=== PATIENT | male | born 1935 | race African-American/Black ===

== ENCOUNTER 2017-06-25 15:39 | Inpatient (IN) | payer MEDICARE, BC ==
[~2017-06-25] VITALS: Ht 172.7 cm; Wt 54.4 kg
[2017-06-25 15:45] VITALS: BP 109/76
--- NOTE | 2017-06-25 16:29 | Diagnostic Imaging Report ---
Indication: Dyspnea Comparison: None A single view chest radiograph was obtained. Findings: The heart is enlarged. There is abnormal basilar densities that appear old the finding. Findings could be due to pneumonia or atelectasis. Lung volumes are low so there is likely some atelectasis present. The bones are unremarkable. Impression: Basilar atelectasis. Pneumonia could be present. Please correlate clinically.
[2017-06-25 16:54] LABS: MEAN CORPUSCULAR HEMOGLOBIN 33.7 PG (27.0-31.0); MEAN CORPUSCULAR HGB CONC 30.1 G/DL (32.0-36.0); MEAN CORPUSCULAR VOLUME 112 FL (80-99); MEAN PLATELET VOLUME 9.4 FL (6.5-10.1); PLATELET COUNT 104 K/UL (150-450); RED BLOOD COUNT 3.87 M/UL (4.70-6.10); RED CELL DISTRIBUTION WIDTH 14.7 % (11.6-14.8); WHITE BLOOD COUNT 9.3 K/UL (4.8-10.8)
[2017-06-25 17:08] LABS: TROPONIN I < 0.30 ng/mL (<=0.30)
[2017-06-25] MEDS ORDERED: TRAVATAN Z5 ML OP (17:09)
[2017-06-25] MEDS ORDERED: PREDNISOLONE 13.5 M1 OP (17:09)
[2017-06-25] MEDS ORDERED: VITAMIN B-1100 MG ORAL (17:09)
[2017-06-25] MEDS ORDERED: DOCUSATE SODIU100 MG ORAL (17:09)
[2017-06-25] MEDS ORDERED: ZYMAXID2.5 ML LEFT EYE (17:09)
[2017-06-25] MEDS ORDERED: TAMSULOSIN HCL0.4 MG ORAL (17:09)
[2017-06-25] MEDS ORDERED: PANTOPRAZOLE SO40 MG ORAL (17:09)
[2017-06-25 17:19] LABS: ALANINE AMINOTRANSFERASE 25 U/L (3-41); ALBUMIN/GLOBULIN RATIO 1.1 (1.0-2.7); ANION GAP 14 (5-15); ASPARTATE AMINO TRANSFERASE 32 U/L (5-40); CALCIUM 8.9 mg/dL (8.6-10.2); CARBON DIOXIDE 22 mEQ/L (20-30); CHLORIDE 103 mEQ/L (98-107); CREATININE 2.1 mg/dL (0.7-1.2); HEMOLYSIS 7; SODIUM 139 mEQ/L (135-145); TOTAL PROTEIN 6.6 g/dL (6.6-8.7)
[2017-06-25 17:21] LABS: POTASSIUM 6.1 mEQ/L (3.4-4.9)
[2017-06-25] MEDS ORDERED: Sodium Polystyrene Sulfonate 15gm Powder ORAL ONE ×2 (17:30→19:20)
[2017-06-25] MEDS ORDERED: Calcium Gluconate 1gm/10ml vial IVP ONE ×2 (17:30→19:15)
[2017-06-25] MEDS ORDERED: Albuterol ud Inhalation HHN ONE (17:30)
--- NOTE | 2017-06-25 17:30 | Emergency Room Report ---
History of Present Illness General Chief Complaint: Upper Respiratory Illness Source: Patient, EMS Present Illness HPI 82YOM BIBEMS with with SOB Was tachypnic on scene per EMS 12 lead shows bradycardia 45. No ischemia No history of bradycardia, block. STOPPED beta-mary anne months ago Takes Bumex and K supplements. Took 2x supplements today Denies chest pain, nausea/vomiting, abd pain, sob Feels better now in ED Allergies: Coded Allergies: PENICILLINS (Verified Allergy, Unknown, 06/25/17) SULFA (SULFONAMIDE ANTIBIOTICS) (Verified Allergy, Unknown, 06/25/17) Patient History Past Medical History: HTN, CHF, renal disease Past Surgical History: none Pertinent Family History: none Social History: Denies: smoking, alcohol use, drug use Immunizations: UTD Reviewed Nursing Documentation: PMH: Agreed, PSxH: Agreed Nursing Documentation-PMH Past Medical History: No History, Except For Hx Cardiac Problems: Yes - CHF Hx Hypertension: Yes Hx Gastrointestinal Problems: Yes - BPH Review of Systems All Other Systems: negative except mentioned in HPI Physical Exam Vital Signs Date Time Temp Pulse Resp B/P (MAP) Pulse Ox O2 Delivery O2 Flow Rate FiO2 06/25/17 15:33 97.2 46 20 109/76 99 Room Air Sp02 EP Interpretation: reviewed, normal General Appearance: normal inspection, well appearing, no apparent distress, alert, GCS 15, non-toxic Head: normocephalic, atraumatic Eyes: bilateral eye PERRL, bilateral eye EOMI ENT: normal ENT inspection, hearing grossly normal, normal voice Neck: normal inspection, full range of motion, supple, no bony tend Respiratory: normal inspection, lungs clear, normal breath sounds, no respiratory distress, no retraction, no wheezing Cardiovascular #1: regular rate, rhythm, no edema Gastrointestinal: normal inspection, normal bowel sounds, non tender, soft, no guarding, no hernia Genitourinary: no CVA tenderness Musculoskeletal: normal inspection, back normal, normal range of motion, Andrew' s Sign negative Neurologic: normal inspection, alert, oriented x3, responsive, 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 I attest that this information is true, accurate and complete to the best of my knowledge. I understand that any falsification, omission, or concealment of material fact may subject me to administrative, civil, or criminal liability. This patient warrants hospital admission for extreme of age and has a condition that cannot be treated as outpatient. Diagnostic Impression: Primary Impression: SOB (shortness of breath) Additional Impressions: Bradycardia First degree atrioventricular block by electrocardiogram Acute hyperkalemia ER Course Bradycardia to 45 Subjective SOB Bradycardia, 1st degre AV block on ECG - appears new onset HyperK - probably from overdose accidntal of K packets - likely cause of bradycardia symptomatic Tx with Calcium, albuterol insulin/dextrose, kayexelate in ED elevated serumCr, likely his known CKD BNP 900 - but o2 sat 100% on RA CXR No pna or CHF Tele admit 6pm Dr. Flores EKG Diagnostic Results Rate: bradycardiac, other - 1st degree block ST Segments: no acute changes ASA given to the pt in ED: No Rhythm Strip Diag. Results EP Interpretation: yes Rate: 45 Rhythm: NSR, no PVC's, no ectopy Chest X-Ray Diagnostic Results Chest X-Ray Diagnostic Results : Chest X-Ray Ordered: Yes # of Views/Limited/Complete: 1 View Indication: Shortness of Breath EP Interpretation: Yes Interpretation: no consolidation, no effusion, no pneumothorax, no acute cardiopulmonary disease Impression: No acute disease Electronically Signed by: Dr Alondra Bennett MD Last Vital Signs Date Time Temp Pulse Resp B/P (MAP) Pulse Ox O2 Delivery O2 Flow Rate FiO2 06/25/17 15:45 46 20 Room Air 06/25/17 15:45 109/76 99 06/25/17 15:33 97.2 Status: improved Disposition: ADMITTED INPATIENT Condition: Serious ALONDRA BENNETT M.D. Jun 25, 2017 17:30
[2017-06-25 17:31] LABS: CKMB 2.1 ng/mL (< 6.7)
[2017-06-25 17:40] LABS: BILIRUBIN,DIRECT 0.6 mg/dL (0.1-0.3)
[2017-06-25 17:43] LABS: LYMPHOCYTES % (MANUAL) 22 % (20-45); NEUTROPHILS % (MANUAL) 66 % (45-75); TOTAL CELLS COUNTED 100
[2017-06-25 17:44] LABS: ANISOCYTOSIS 1+; BAND NEUTROPHILS % (MANUAL) 0 % (0-8); BASOPHILS % (MANUAL) 0 % (0-2); EOSINOPHILS % (MANUAL) 0 % (0-3); MACROCYTES 2+; PLATELET ESTIMATE DECREASED; PLATELET MORPHOLOGY NORMAL
[2017-06-25 17:50] VITALS: BP 103/71
[2017-06-25 18:17] VITALS: BP 129/77
[2017-06-25 19:08] VITALS: BP 116/70
[2017-06-25] MEDS ORDERED: Morphine Sulfate 2mg/ml Inj IVP PRN (19:15)
[2017-06-25] MEDS ORDERED: Albuterol/Ipratropium 3ml neb HHN PRN (19:15)
[2017-06-25] MEDS ORDERED: Mylanta II UD 30ml ORAL PRN (19:15)
[2017-06-25] MEDS ORDERED: Zolpidem 5mg tab ORAL PRN (19:15)
[2017-06-25] MEDS ORDERED: Miralax 17gm pkt ORAL PRN (19:15)
[2017-06-25 21:00] VITALS: BP 152/72
[2017-06-25] MEDS ORDERED: Tamsulosin 0.4mg cap ORAL SCH (21:00)
[2017-06-25] MEDS: Heparin 5000 units/ml inj SUBQ SCH (22:34)
[2017-06-26] VITALS: BP 114/74
[2017-06-26 04:00] VITALS: BP 98/57
[2017-06-26 08:00] VITALS: BP 113/73
[2017-06-26 08:13] LABS: EOSINOPHILS % (AUTO) 1.1 % (0.0-3.0); LYMPHOCYTES % (AUTO) 13.2 % (20.0-45.0); MEAN CORPUSCULAR HEMOGLOBIN 35.7 PG (27.0-31.0); MEAN CORPUSCULAR HGB CONC 32.7 G/DL (32.0-36.0); MEAN CORPUSCULAR VOLUME 109 FL (80-99); MEAN PLATELET VOLUME 10.7 FL (6.5-10.1); MONOCYTES % (AUTO) 10.6 % (1.0-10.0); NEUTROPHILS % (AUTO) 74.1 % (45.0-75.0); PLATELET COUNT 109 K/UL (150-450); RED BLOOD COUNT 3.76 M/UL (4.70-6.10); RED CELL DISTRIBUTION WIDTH 14.2 % (11.6-14.8)
[2017-06-26 08:55] LABS: ALANINE AMINOTRANSFERASE 24 U/L (3-41); ALBUMIN/GLOBULIN RATIO 1.1 (1.0-2.7); ANION GAP 15 (5-15); ASPARTATE AMINO TRANSFERASE 31 U/L (5-40); CALCIUM 9.4 mg/dL (8.6-10.2); CARBON DIOXIDE 22 mEQ/L (20-30); CHLORIDE 105 mEQ/L (98-107); CREATININE 2.2 mg/dL (0.7-1.2); HEMOLYSIS 42; POTASSIUM 5.5 mEQ/L (3.4-4.9); SODIUM 142 mEQ/L (135-145); TOTAL PROTEIN 6.4 g/dL (6.6-8.7)
[2017-06-26] MEDS: Heparin 5000 units/ml inj SUBQ SCH (09:00)
--- NOTE | 2017-06-26 10:22 | History and Physical ---
History of Present Illness General Date patient seen: Jun 25, 2017 Reason for Hospitalization: Upper Respiratory Illness Present Illness HPI 82 year old male with hx of chronic renal disease on Bumex and Kcl was brought in by paramedics with CC of tachypnia on scene per EMS 12 lead shows bradycardia 45. Denies chest pain, nausea/vomiting, abd pain, sob. He was diagnosed to have hyerkalemia and worsening of her underlying renal insufficiency. He is admitted to telemetry for further evaluation. Allergies: Coded Allergies: PENICILLINS (Verified Allergy, Unknown, 06/25/17) SULFA (SULFONAMIDE ANTIBIOTICS) (Verified Allergy, Unknown, 06/25/17) Medication History Scheduled Docusate Sodium* (Docusate Sodium*), 100 MG ORAL TWICE A DAY, (Reported) Pantoprazole* (Pantoprazole*), 40 MG ORAL DAILY, (Reported) Tamsulosin Hcl (Tamsulosin Hcl*), 0.4 MG ORAL BEDTIME, (Reported) Thiamine Hcl* (Vitamin B-1*), 100 MG ORAL DAILY, (Reported) Miscellaneous Medications Gatifloxacin (Zymaxid), 2.5 ML LEFT EYE, (Reported) Gatifloxacin/Prednisolone (Prednisolone 1%-Gatiflox 0.5%), 3.5 ML OP, (Reported) Travoprost (Travatan Z), 5 ML OP, (Reported) Patient History Healthcare decision maker Resuscitation status Full Code Advanced Directive on File No Review of Systems Constitutional: Reports: malaise, weakness All Other Systems: negative except mentioned in HPI Physical Exam General Appearance: cachetic Lines, tubes and drains: peripheral HEENT: normocephalic, atraumatic Neck: non-tender, normal alignment Respiratory/Chest: chest wall non-tender, lungs clear Breasts: no masses Cardiovascular/Chest: normal peripheral pulses Abdomen: normal bowel sounds, soft Genitourinary/Rectal: normal genital exam Extremities: normal range of motion Skin Exam: normal pigmentation 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 Last 24 Hour Vital Signs Date Time Temp Pulse Resp B/P (MAP) Pulse Ox O2 Delivery O2 Flow Rate FiO2 06/26/17 08:00 96.8 55 19 113/73 99 Room Air 06/26/17 04:00 96.1 54 20 98/57 97 Room Air 06/26/17 04:00 51 06/26/17 00:00 59 10/3/17 00:00 97.7 53 20 114/74 98 Room Air 06/25/17 21:00 97.7 53 16 152/72 100 Room Air 21 06/25/17 19:14 97.2 52 16 116/70 100 Room Air 21 06/25/17 19:08 52 16 116/70 100 Room Air 06/25/17 18:17 51 16 129/77 100 Room Air 06/25/17 17:59 52 16 100 Room Air 21 06/25/17 17:50 48 18 103/71 100 Room Air 06/25/17 17:40 46 18 100 Room Air 21 06/25/17 17:39 46 18 Room Air 21 06/25/17 15:45 46 20 Room Air 06/25/17 15:45 20 109/76 99 Room Air 06/25/17 15:33 97.2 46 20 109/76 99 Room Air Laboratory Tests Test 06/25/17 16:10 06/26/17 07:35 White Blood Count 9.3 K/UL (4.8-10.8) 7.0 K/UL (4.8-10.8) Red Blood Count 3.87 M/UL (4.70-6.10) L 3.76 M/UL (4.70-6.10) L Hemoglobin 13.0 G/DL (14.2-18.0) L 13.4 G/DL (14.2-18.0) L Hematocrit 43.3 % (42.0-52.0) 41.0 % (42.0-52.0) L Mean Corpuscular Volume 112 FL (80-99) H 109 FL (80-99) H Mean Corpuscular Hemoglobin 33.7 PG (27.0-31.0) H 35.7 PG (27.0-31.0) H Mean Corpuscular Hemoglobin Concent 30.1 G/DL (32.0-36.0) L 32.7 G/DL (32.0-36.0) Red Cell Distribution Width 14.7 % (11.6-14.8) 14.2 % (11.6-14.8) Platelet Count 104 K/UL (150-450) L 109 K/UL (150-450) L Mean Platelet Volume 9.4 FL (6.5-10.1) 10.7 FL (6.5-10.1) H Neutrophils (%) (Auto) % (45.0-75.0) 74.1 % (45.0-75.0) Lymphocytes (%) (Auto) % (20.0-45.0) 13.2 % (20.0-45.0) L Monocytes (%) (Auto) % (1.0-10.0) 10.6 % (1.0-10.0) H Eosinophils (%) (Auto) % (0.0-3.0) 1.1 % (0.0-3.0) Basophils (%) (Auto) % (0.0-2.0) 1.0 % (0.0-2.0) Differential Total Cells Counted 100 Neutrophils % (Manual) 66 % (45-75) Lymphocytes % (Manual) 22 % (20-45) Monocytes % (Manual) 12 % (1-10) H Eosinophils % (Manual) 0 % (0-3) Basophils % (Manual) 0 % (0-2) Band Neutrophils 0 % (0-8) Platelet Estimate Decreased L Platelet Morphology Normal Anisocytosis 1+ Macrocytosis 2+ Sodium Level 139 mEQ/L (135-145) 142 mEQ/L (135-145) Potassium Level 6.1 mEQ/L (3.4-4.9) *H 5.5 mEQ/L (3.4-4.9) H Chloride Level 103 mEQ/L (98-107) 105 mEQ/L (98-107) Carbon Dioxide Level 22 mEQ/L (20-30) 22 mEQ/L (20-30) Anion Gap 14 (5-15) 15 (5-15) Blood Urea Nitrogen 55 mg/dL (7-23) H 60 mg/dL (7-23) H Creatinine 2.1 mg/dL (0.7-1.2) H 2.2 mg/dL (0.7-1.2) H Estimat Glomerular Filtration Rate mL/min (>60) mL/min (>60) Glucose Level 125 mg/dL (74-106) H 82 mg/dL (74-106) Calcium Level 8.9 mg/dL (8.6-10.2) 9.4 mg/dL (8.6-10.2) Total Bilirubin 1.6 mg/dL (0.0-1.2) H 1.7 mg/dL (0.0-1.2) H Direct Bilirubin 0.6 mg/dL (0.1-0.3) H Pending Aspartate Amino Transf (AST/SGOT) 32 U/L (5-40) 31 U/L (5-40) Alanine Aminotransferase (ALT/SGPT) 25 U/L (3-41) 24 U/L (3-41) Alkaline Phosphatase 100 U/L (40-129) 100 U/L (40-129) Total Creatine Kinase 33 U/L (38-174) L Creatine Kinase MB 2.1 ng/mL (< 6.7) Creatine Kinase MB Relative Index 6.3 Troponin I < 0.30 ng/mL (<=0.30) Pro-B-Type Natriuretic Peptide 9857 pg/mL (0-450) H Total Protein 6.6 g/dL (6.6-8.7) 6.4 g/dL (6.6-8.7) L Albumin 3.5 g/dL (3.5-5.2) 3.4 g/dL (3.5-5.2) L Globulin 3.1 g/dL 3.0 g/dL Albumin/Globulin Ratio 1.1 (1.0-2.7) 1.1 (1.0-2.7) Hemoglobin A1c Pending Thyroid Stimulating Hormone (TSH) 2.710 uIU/mL (0.300-4.500) Height (Feet): 5 Height (Inches): 8.00 Weight (Pounds): 120 Medications Current Medications Medications (Trade) Dose Ordered Sig/Sunday Route PRN Reason Start Time Stop Time Status Last Admin Dose Admin Acetaminophen (Tylenol) 650 mg Q4H PRN ORAL fever 06/25/17 19:15 07/25/17 19:14 Al Hydroxide/Mg Hydroxide (Mylanta II) 30 ml Q6H PRN ORAL dyspepsia 06/25/17 19:15 07/25/17 19:14 Albuterol/ Ipratropium (DuoNeb 0.5-3(2.5)mg/3ml) 3 ml Q6H PRN HHN dyspnea 06/25/17 19:15 06/30/17 19:14 Calcium Gluconate (Calcium Gluconate 10%) 1 gm ONCE ONCE IVP 06/25/17 19:15 06/25/17 19:16 UNV Clonidine HCl (Catapres) 0.1 mg Q4H PRN ORAL SBP > 160 06/25/17 19:15 07/25/17 19:14 Heparin Sodium (Porcine) (Heparin 5000 units/ml) 5,000 units EVERY 12 HOURS SUBQ 06/25/17 21:00 07/25/17 20:59 06/25/17 22:34 Morphine Sulfate (Morphine Sulfate) 1 mg Q4H PRN IVP For Pain 4-10 06/25/17 19:15 07/02/17 19:14 Ondansetron HCl (Zofran) 4 mg Q6H PRN IVP Nausea & Vomiting 06/25/17 19:15 07/25/17 19:14 Pantoprazole (Protonix) 40 mg DAILY ORAL 06/26/17 09:00 07/26/17 08:59 Polyethylene Glycol (Miralax) 17 gm HSPRN PRN ORAL Constipation 06/25/17 19:15 07/25/17 19:14 Tamsulosin HCl (Flomax) 0.4 mg BEDTIME ORAL 06/25/17 21:00 07/25/17 20:59 06/25/17 22:31 Zolpidem Tartrate (Ambien) 5 mg HSPRN PRN ORAL Insomnia 06/25/17 19:15 07/02/17 19:14 Assessment/Plan Problem List: (1) Acute hyperkalemia ICD Codes: E87.5 - Hyperkalemia SNOMED: 9466288 (2) Acute on chronic renal insufficiency ICD Codes: N28.9 - Disorder of kidney and ureter, unspecified; N18.9 - Chronic kidney disease, unspecified SNOMED: 016405347, 959624041 (3) Cardiomegaly ICD Codes: I51.7 - Cardiomegaly SNOMED: 9253453 (4) First degree atrioventricular block by electrocardiogram ICD Codes: I44.0 - Atrioventricular block, first degree SNOMED: 909340852 (5) Bradycardia ICD Codes: R00.1 - Bradycardia, unspecified SNOMED: 55502154 Assessment/Plan kayexalate po IV lfuids D50 with insulin renal studies cardiac studies telemetry symptomatic treatment. NOY MANSFIELD Jun 26, 2017 10:22
--- NOTE | 2017-06-26 10:23 | Pulmonology Progress Note ---
Assessment/Plan Problems: (1) Acute hyperkalemia (2) Acute on chronic renal insufficiency (3) Cardiomegaly (4) First degree atrioventricular block by electrocardiogram (5) Bradycardia Assessment/Plan K better renal US, renal consult pending echo cardiology to see. Subjective ROS Limited/Unobtainable: No Interval Events: feeling better, no new complains Allergies: Coded Allergies: PENICILLINS (Verified Allergy, Unknown, 06/25/17) SULFA (SULFONAMIDE ANTIBIOTICS) (Verified Allergy, Unknown, 06/25/17) Objective Last 24 Hour Vital Signs Date Time Temp Pulse Resp B/P (MAP) Pulse Ox O2 Delivery O2 Flow Rate FiO2 06/26/17 08:00 96.8 55 19 113/73 99 Room Air 06/26/17 04:00 96.1 54 20 98/57 97 Room Air 06/26/17 04:00 51 06/26/17 00:00 59 06/26/17 00:00 97.7 53 20 114/74 98 Room Air 06/25/17 21:00 97.7 53 16 152/72 100 Room Air 21 06/25/17 19:14 97.2 52 16 116/70 100 Room Air 21 06/25/17 19:08 52 16 116/70 100 Room Air 06/25/17 18:17 51 16 129/77 100 Room Air 06/25/17 17:59 52 16 100 Room Air 21 06/25/17 17:50 48 18 103/71 100 Room Air 06/25/17 17:40 46 18 100 Room Air 21 06/25/17 17:39 46 18 Room Air 21 06/25/17 15:45 46 20 Room Air 06/25/17 15:45 20 109/76 99 Room Air 06/25/17 15:33 97.2 46 20 109/76 99 Room Air General Appearance: cachetic HEENT: normocephalic, atraumatic Respiratory/Chest: chest wall non-tender, lungs clear Cardiovascular: normal peripheral pulses, normal rate Abdomen: normal bowel sounds, soft, non tender Extremities: no cyanosis Skin: no rash 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, no motor/sensory deficits Lymphatic: no groin adenopathy Laboratory Tests 06/25/17 16:10: White Blood Count 9.3, Red Blood Count 3.87L, Hemoglobin 13.0L, Hematocrit 43.3 , Mean Corpuscular Volume 112H, Mean Corpuscular Hemoglobin 33.7H, Mean Corpuscular Hemoglobin Concent 30.1L, Red Cell Distribution Width 14.7, Platelet Count 104L, Mean Platelet Volume 9.4, Neutrophils (%) (Auto) , Lymphocytes (%) (Auto) , Monocytes (%) (Auto) , Eosinophils (%) (Auto) , Basophils (%) (Auto) , Differential Total Cells Counted 100, Neutrophils % ( Manual) 66, Lymphocytes % (Manual) 22, Monocytes % (Manual) 12H, Eosinophils % ( Manual) 0, Basophils % (Manual) 0, Band Neutrophils 0, Platelet Estimate DecreasedL, Platelet Morphology Normal, Anisocytosis 1+, Macrocytosis 2+, Sodium Level 139, Potassium Level 6.1*H, Chloride Level 103, Carbon Dioxide Level 22, Anion Gap 14, Blood Urea Nitrogen 55H, Creatinine 2.1H, Estimat Glomerular Filtration Rate , Glucose Level 125H, Calcium Level 8.9, Total Bilirubin 1.6H, Direct Bilirubin 0.6H, Aspartate Amino Transf (AST/SGOT) 32, Alanine Aminotransferase (ALT/SGPT) 25, Alkaline Phosphatase 100, Total Creatine Kinase 33L, Creatine Kinase MB 2.1, Creatine Kinase MB Relative Index 6.3, Troponin I < 0.30, Pro-B-Type Natriuretic Peptide 9857H, Total Protein 6.6 , Albumin 3.5, Globulin 3.1, Albumin/Globulin Ratio 1.1 06/26/17 07:35: White Blood Count 7.0, Red Blood Count 3.76L, Hemoglobin 13.4L, Hematocrit 41.0L , Mean Corpuscular Volume 109H, Mean Corpuscular Hemoglobin 35.7H, Mean Corpuscular Hemoglobin Concent 32.7, Red Cell Distribution Width 14.2, Platelet Count 109L, Mean Platelet Volume 10.7H, Neutrophils (%) (Auto) 74.1, Lymphocytes (%) (Auto) 13.2L, Monocytes (%) (Auto) 10.6H, Eosinophils (%) (Auto ) 1.1, Basophils (%) (Auto) 1.0, Sodium Level 142, Potassium Level 5.5H, Chloride Level 105, Carbon Dioxide Level 22, Anion Gap 15, Blood Urea Nitrogen 60H, Creatinine 2.2H, Estimat Glomerular Filtration Rate , Glucose Level 82, Calcium Level 9.4, Total Bilirubin 1.7H, Direct Bilirubin [Pending], Aspartate Amino Transf (AST/SGOT) 31, Alanine Aminotransferase (ALT/SGPT) 24, Alkaline Phosphatase 100, Total Protein 6.4L, Albumin 3.4L, Globulin 3.0, Albumin/ Globulin Ratio 1.1, Hemoglobin A1c [Pending], Thyroid Stimulating Hormone (TSH) 2.710 Current Medications Medications (Trade) Dose Ordered Sig/Sunday Route PRN Reason Start Time Stop Time Status Last Admin Dose Admin Acetaminophen (Tylenol) 650 mg Q4H PRN ORAL fever 06/25/17 19:15 07/25/17 19:14 Al Hydroxide/Mg Hydroxide (Mylanta II) 30 ml Q6H PRN ORAL dyspepsia 06/25/17 19:15 07/25/17 19:14 Albuterol/ Ipratropium (DuoNeb 0.5-3(2.5)mg/3ml) 3 ml Q6H PRN HHN dyspnea 06/25/17 19:15 06/30/17 19:14 Calcium Gluconate (Calcium Gluconate 10%) 1 gm ONCE ONCE IVP 06/25/17 19:15 06/25/17 19:16 UNV Clonidine HCl (Catapres) 0.1 mg Q4H PRN ORAL SBP > 160 06/25/17 19:15 07/25/17 19:14 Heparin Sodium (Porcine) (Heparin 5000 units/ml) 5,000 units EVERY 12 HOURS SUBQ 06/25/17 21:00 07/25/17 20:59 06/25/17 22:34 Morphine Sulfate (Morphine Sulfate) 1 mg Q4H PRN IVP For Pain 4-10 06/25/17 19:15 07/02/17 19:14 Ondansetron HCl (Zofran) 4 mg Q6H PRN IVP Nausea & Vomiting 06/25/17 19:15 07/25/17 19:14 Pantoprazole (Protonix) 40 mg DAILY ORAL 06/26/17 09:00 07/26/17 08:59 Polyethylene Glycol (Miralax) 17 gm HSPRN PRN ORAL Constipation 06/25/17 19:15 07/25/17 19:14 Tamsulosin HCl (Flomax) 0.4 mg BEDTIME ORAL 06/25/17 21:00 07/25/17 20:59 06/25/17 22:31 Zolpidem Tartrate (Ambien) 5 mg HSPRN PRN ORAL Insomnia 06/25/17 19:15 07/02/17 19:14 ONY MANSFIELD Jun 26, 2017 10:23
[2017-06-26] MEDS ORDERED: Sodium Polystyrene Sulfonate 15gm Powder ORAL ONE (10:30)
[2017-06-26 10:43] LABS: BILIRUBIN,DIRECT 0.6 mg/dL (0.1-0.3)
[2017-06-26 10:44] LABS: HEMOGLOBIN A1C 5.6 % (< 6.0)
[2017-06-26 11:03] LABS: URIC ACID 10.6 mg/dL (3.0-7.5)
[2017-06-26 12:00] VITALS: BP 111/65
--- NOTE | 2017-06-26 13:02 | Cardiology Progress Note ---
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, including amyloidosis hyperkalemia s/p cath w/o sig CAD 05/26/16 [place] congestive heart failure diastolic dysfunction CAD HTN HLD COPD CKI Anemia .[id number] avoid acei or aldactone or any k supplement at home if repeat trop is neg to dc to fu at [facility] where he get his care from Objective Last 24 Hour Vital Signs Date Time Temp Pulse Resp B/P (MAP) Pulse Ox O2 Delivery O2 Flow Rate FiO2 06/26/17 08:10 66 16 Room Air 21 06/26/17 08:00 96.8 55 19 113/73 99 Room Air 06/26/17 08:00 54 06/26/17 04:00 96.1 54 20 98/57 97 Room Air 06/26/17 04:00 51 06/26/17 00:00 59 06/26/17 00:00 97.7 53 20 114/74 98 Room Air 06/25/17 21:00 97.7 53 16 152/72 100 Room Air 21 06/25/17 19:14 97.2 52 16 116/70 100 Room Air 21 06/25/17 19:08 52 16 116/70 100 Room Air 06/25/17 18:17 51 16 129/77 100 Room Air 06/25/17 17:59 52 16 100 Room Air 21 06/25/17 17:50 48 18 103/71 100 Room Air 06/25/17 17:40 46 18 100 Room Air 21 06/25/17 17:39 46 18 Room Air 21 06/25/17 15:45 46 20 Room Air 06/25/17 15:45 20 109/76 99 Room Air 06/25/17 15:33 97.2 46 20 109/76 99 Room Air Laboratory Tests Test 06/25/17 16:10 06/26/17 07:35 White Blood Count 9.3 K/UL (4.8-10.8) 7.0 K/UL (4.8-10.8) Red Blood Count 3.87 M/UL (4.70-6.10) L 3.76 M/UL (4.70-6.10) L Hemoglobin 13.0 G/DL (14.2-18.0) L 13.4 G/DL (14.2-18.0) L Hematocrit 43.3 % (42.0-52.0) 41.0 % (42.0-52.0) L Mean Corpuscular Volume 112 FL (80-99) H 109 FL (80-99) H Mean Corpuscular Hemoglobin 33.7 PG (27.0-31.0) H 35.7 PG (27.0-31.0) H Mean Corpuscular Hemoglobin Concent 30.1 G/DL (32.0-36.0) L 32.7 G/DL (32.0-36.0) Red Cell Distribution Width 14.7 % (11.6-14.8) 14.2 % (11.6-14.8) Platelet Count 104 K/UL (150-450) L 109 K/UL (150-450) L Mean Platelet Volume 9.4 FL (6.5-10.1) 10.7 FL (6.5-10.1) H Neutrophils (%) (Auto) % (45.0-75.0) 74.1 % (45.0-75.0) Lymphocytes (%) (Auto) % (20.0-45.0) 13.2 % (20.0-45.0) L Monocytes (%) (Auto) % (1.0-10.0) 10.6 % (1.0-10.0) H Eosinophils (%) (Auto) % (0.0-3.0) 1.1 % (0.0-3.0) Basophils (%) (Auto) % (0.0-2.0) 1.0 % (0.0-2.0) Differential Total Cells Counted 100 Neutrophils % (Manual) 66 % (45-75) Lymphocytes % (Manual) 22 % (20-45) Monocytes % (Manual) 12 % (1-10) H Eosinophils % (Manual) 0 % (0-3) Basophils % (Manual) 0 % (0-2) Band Neutrophils 0 % (0-8) Platelet Estimate Decreased L Platelet Morphology Normal Anisocytosis 1+ Macrocytosis 2+ Sodium Level 139 mEQ/L (135-145) 142 mEQ/L (135-145) Potassium Level 6.1 mEQ/L (3.4-4.9) *H 5.5 mEQ/L (3.4-4.9) H Chloride Level 103 mEQ/L (98-107) 105 mEQ/L (98-107) Carbon Dioxide Level 22 mEQ/L (20-30) 22 mEQ/L (20-30) Anion Gap 14 (5-15) 15 (5-15) Blood Urea Nitrogen 55 mg/dL (7-23) H 60 mg/dL (7-23) H Creatinine 2.1 mg/dL (0.7-1.2) H 2.2 mg/dL (0.7-1.2) H Estimat Glomerular Filtration Rate mL/min (>60) mL/min (>60) Glucose Level 125 mg/dL (74-106) H 82 mg/dL (74-106) Calcium Level 8.9 mg/dL (8.6-10.2) 9.4 mg/dL (8.6-10.2) Total Bilirubin 1.6 mg/dL (0.0-1.2) H 1.7 mg/dL (0.0-1.2) H Direct Bilirubin 0.6 mg/dL (0.1-0.3) H 0.6 mg/dL (0.1-0.3) H Aspartate Amino Transf (AST/SGOT) 32 U/L (5-40) 31 U/L (5-40) Alanine Aminotransferase (ALT/SGPT) 25 U/L (3-41) 24 U/L (3-41) Alkaline Phosphatase 100 U/L (40-129) 100 U/L (40-129) Total Creatine Kinase 33 U/L (38-174) L 32 U/L (38-174) L Creatine Kinase MB 2.1 ng/mL (< 6.7) Creatine Kinase MB Relative Index 6.3 Troponin I < 0.30 ng/mL (<=0.30) Pro-B-Type Natriuretic Peptide 9857 pg/mL (0-450) H Total Protein 6.6 g/dL (6.6-8.7) 6.4 g/dL (6.6-8.7) L Albumin 3.5 g/dL (3.5-5.2) 3.4 g/dL (3.5-5.2) L Globulin 3.1 g/dL 3.0 g/dL Albumin/Globulin Ratio 1.1 (1.0-2.7) 1.1 (1.0-2.7) Hemoglobin A1c 5.6 % (< 6.0) Uric Acid 10.6 mg/dL (3.0-7.5) H Carcinoembryonic Antigen 3.3 ng/mL H Thyroid Stimulating Hormone (TSH) 2.710 uIU/mL (0.300-4.500) MILE RODRÍGUEZ Jun 26, 2017 13:02
[2017-06-26 14:14] LABS: TROPONIN I < 0.30 ng/mL (<=0.30)
--- NOTE | 2017-06-26 17:18 | Cardiology Report ---
APPROVED REPORT EXAM: Two-dimensional and M-mode echocardiogram with Doppler and color Doppler. INDICATION Left ventricular function M-Mode DIMENSIONS IVSd2.4 (0.7-1.1cm)Left Atrium (MM)4.1 (1.6-4.0cm) LVDd4.0 (3.5-5.6cm)Aortic Root3.1 (2.0-3.7cm) PWd1.3 (0.7-1.1cm)Aortic Cusp Exc.1.0 (1.5-2.0cm) LVDs3.1 (2.5-4.0cm) PWs1.6 cm Technically limited and difficult study due to poor acoustical windows. Normal left ventricular chamber size. Global left ventricular hypokinesis Left ventricular ejection fraction estimated to be 35 %. Moderate to severe left ventricular hypertrophy. Large posterior pleural effusion. Moderate bi-atrial enlargement by 2D. Aortic valve calcification with decreased cusp excursion c/w aortic stenosis. Thickened mitral valve leaflets with normal excursion. Mild mitral annulus and aortic root calcification. Pulmonic valve not well visualized. Normal tricuspid valve structure. IVC is normal in size and collapsible with respiration. IVC dilated at 2.9cm non-collapsible with respiration indicate increased RA pressure. A color flow and spectral Doppler study was performed and revealed: Mild aortic regurgitation. Peak aortic valve gradient of 12 mmHg and a mean of 6mmHg. Aortic valve area 1.2 cm2 calculated by continuity equation. Moderate mitral regurgitation. Moderate diastolic dysfunction and increased LA pressure Moderate tricuspid regurgitation. Tricuspid systolic velocities suggests peak right ventricular systolic pressure of 52mmHg Consistent with pulmonary hypertension. Pulmonic regurgitation (2 jets) present. discussed results with pt over the phone to make sure pt has appoint with his cardiologit indicated appoit was klaudia set for this sunday understood not to take any potassium supplement
--- NOTE | 2017-06-26 18:01 | Cardiology Report ---
APPROVED REPORT EKG Measurement Heart [id number] Marked sinus bradycardia with 1st degree AV block Low voltage QRS Septal infarct, age undetermined Lateral infarct, age undetermined Abnormal ECG
--- NOTE | 2017-06-27 08:46 | Consultation ---
DATE OF CONSULTATION: 06/26/2017 CARDIOLOGY CONSULTATION CONSULTING PHYSICIAN: Dakota Duran M.D. REFERRING PHYSICIAN: Zhou Flores M.D. REASON FOR REFERRAL: Bradycardia. History Of Present Illness: This is an elderly gentleman, who has provided some information for me. Remainder of information was obtained from my review of the patient's chart as well as from review of the [facility] records under his name. The patient basically 82 years old, paramedics were summoned because of him not feeling well that is what he tells me, but he was not really having any pain, possibly some shortness of breath, he said. Anyway, the product managent intern run sheet indicates the patient was complaining of shortness of breath and mild level of distress, but alert and oriented, found ambulatory on the scene saying that he has been having trouble off and on this morning. The patient was speaking in complete sentences, no accessory muscle usage, and his oxygen saturation was 100% on room air with clear lung sounds. The patient denies any chest pain or weakness, but does have some lower heart rate and has been sustained below 50s throughout the duration of the call. Other vital signs were normal. The patient was given IV and transferred to the emergency room here at [facility] and was admitted to the hospital because of bradycardia. He denies having had any chest pain or pressure. There is no PND. He uses 1 pillow. He has some dyspnea on exertion. There is no dizziness when he sits up or stands up. He has not fainted or come close to fainting. He has been told previously that he has some slow heart rates. Past Medical History: [facility] records indicates his past medical history is positive for history of hypertension, pelvic pain, gastroesophageal reflux disease, hyperlipidemia, urethral stricture, cough, urinary tract infection, elevated troponin, lightheadedness occasionally, mild aortic stenosis, abnormal taste sensation, slurred speech, dizziness, urinary retention, pulmonary hypertension, transient ischemic attack, upper respiratory tract infection, pseudoaphakia of both eyes, hydroureter, renal insufficiency, hyperlipidemia, open-angle glaucoma, [id number] myocardial infarction history, congestive heart failure history, anemia, chronic obstructive pulmonary disease, chronic kidney disease, inguinal hernia, paroxysmal episodes of atrial fibrillation, chronic diastolic heart failure, has been seen by Dr. Kervin duran at [facility]. His note indicates in 2014 ejection fraction showed 50% to 55%, prominent atrial fib trabeculations, severe biatrial enlargement, mild to moderate low gradient aortic stenosis, mean gradient of 6 at that time. Cardiac MRI in 2014, delayed enhancement in the septum, anterior septum, adjacent wall consistent with infiltrative process including amyloidosis and immunofixation serum and urine showed no monoclonal IgG and subsequently in 2016, ejection fraction of 35% to 40%, moderate aortic stenosis, large pleural effusion on the left side was noted. The patient did have abnormal cardiac enzymes in May 2016, for which he was hospitalized at [facility]. Cardiac cath was performed at that time, which showed no significant coronary disease and abnormal troponin felt to be secondary to demand and decreased cardiac clearance and also includes a history of COPD. In direct comparison, his EKG at [facility] basically showed sinus bradycardia at rate of 57. No significant change in voltage criteria. Review Of Systems: Gastrointestinal: He denies any nausea, vomiting, or diarrhea. Denies constipation. No bloody stools or black tarry stools. Genitourinary: No blood or burning when he urinates. Pulmonary: Occasional coughing. No wheezing. Constitutional: No fevers, chills, or night sweats. Neurologic: No numbness or tingling sensation in his legs or face. PHYSICAL EXAMINATION: General: Physical examination shows him to be an elderly, thin gentleman in no respiratory distress. HEENT: Unremarkable. Neck: Supple. No jugular venous distention. No abdominojugular reflux noted. LUNGS: Clear to auscultation and percussion. Cardiac: Distant heart sounds. Regular rhythm. Systolic ejection murmur. No RV lifts, heaves, or thrills noted. ABDOMEN: Soft and nontender. Positive bowel sounds. Extremities: There is no clubbing, cyanosis, nor is there any edema. Neurological: He is awake, alert, responsive, and in no apparent respiratory distress. Laboratory And Diagnostic Data: An EKG could not be found in [facility] system, however, the summary indicates the patient had a heart rate of 57, sinus bradycardia, nonspecific T-wave abnormality, and a prolonged QT at that time. His electrocardiogram that was performed by the paramedics showed profound sinus bradycardia, rate of 45. There does not appear to be any other issues on that EKG. EKG performed here also showed sinus bradycardia with low voltage QRS complexes in the leads, otherwise, no pauses. His telemetry also shows no significant pauses. On his EKG, sinus rhythm has been documented since. His white count 7, hemoglobin 13.4, and platelet count of 109,000. Sodium is 142, potassium 5.5, chloride , bicarbonate of 22, BUN of 60, and creatinine of 2.2. Uric acid is 10.6. Bilirubin of 1.7. CK of 32. Troponin less than 0.03. ProBNP of 9800. CEA of 3.3. TSH of 2.7. Imaging: A chest x-ray performed showed atelectasis, pneumonia could be present. Heart was enlarged. ASSESSMENT: 1. Sinus bradycardia with history of same. 2. Cardiac MRI previous showing of infiltrative myocardial process. 3. Hyperkalemia. 4. History of cardiac catheterization at [facility] on 06/19/2017. No significant underlying coronary disease was noted. 5. History of chronic diastolic heart failure. 6. Coronary disease. 7. Hypertension. 8. Hyperlipidemia. 9. Chronic obstructive pulmonary disease. 10. Chronic renal insufficiency. 11. Anemia. Plan: Dr. Flores, this patient was seen in cardiac consultation. The patient should have a set of cardiac enzymes checked today. Otherwise, he seems to be back to his baseline and he may need to be followed up with his usual doctors at [facility] where he seems to indicate he gets his care from. His potassium was a bit elevated during this hospitalization. Information from the emergency room was failed to indicate that the patient may have had some extra doses of potassium and he should be taken off of potassium at home and he may need to discontinue any ALEXSANDER inhibitors. Unfortunately, the list of his medications is not completely clear to me at this time, but should be off of ALEXSANDER inhibitors, any Aldactone or potassium, at this time until he is followed up as outpatient. Of note, again his chest x-ray does not seem to show any significant pleural effusion as it had shown previously at [facility] in 2016. Dakota Duran M.D. DR: DELORES JOB#: [id number] CC:
--- NOTE | 2017-06-28 10:08 | Discharge Summary ---
Discharge Summary Hospital Course Date of Admission Jun 25, 2017 at 18:04 Date of Discharge Jun 26, 2017 at 16:25 Admitting Diagnosis bradycardia, Hyperkalemia HPI Dimitrios Dangelo is a 82 year old male who was admitted on Jun 25, 2017 at 18:04 for Bradycardia, Hyperkalemia Hospital Course [id number] Discharge Discharge Disposition Patient was discharged to Home (01) Discharge Diagnoses: Suad Leon NP Jun 28, 2017 10:08
--- NOTE | 2017-06-29 00:30 | Discharge Summary 2 SIG ---
DATE OF ADMISSION: 06/25/2017 DATE OF DISCHARGE: 06/26/2017 DATA COMMUNICATIONS ENGINEER: Dakota Duran M.D. Brief Hospital Course: The patient is an 82-year-old male with history of chronic renal disease on Bumex and potassium chloride was brought in by paramedics for chief complaint of tachypnea per EMS. A 12 lead EKG showed bradycardia of 45. On evaluation at ED, EKG done showed first-degree AV block. Blood work showed hyperkalemia of 6.1 and creatinine was elevated to 2.2. He was given calcium, albuterol, insulin, dextrose, and Kayexalate. Chest x-ray showed no pneumonia or CHF. He was then admitted to telemetry for hyperkalemia, acute renal insufficiency, and bradycardia. He was started on IV hydration and underwent cardiac evaluation. He was previously admitted to [facility] May 2016 due to abnormal cardiac enzymes and a cardiac catheterization was performed, which showed no significant coronary artery disease and abnormal troponin was felt to be secondary to demand and decreased cardiac clearance. The patient's EKG was compared to prior EKG at [facility] and there was no significant change in voltage criteria. During admission, telemetry data did not show any significant pause. Echocardiogram done showed left ventricular ejection fraction of 35% with moderate to severe left ventricular hypertrophy.The patient denies any dizziness when he sits up or stands up. He has not fainted or come close to fainting. He is being followed up by his usual doctors at [facility]. He was recommended to discontinue ALEXSANDER inhibitors or any Aldactone or potassium until he follows up with his PMD. Due to rapid unexpected improvement of symptoms with negative workup, the patient was then discharged home. Advised to follow up with PMD in a week. FINAL DIAGNOSES: 1. Sinus bradycardia. 2. Acute hyperkalemia. 3. Acute on chronic renal insufficiency. 4. First-degree atrioventricular block per EKG. 5. Chronic diastolic heart failure. 6. Coronary artery disease. 7. Hyperlipidemia. 8. Hypertension. 9. Chronic obstructive pulmonary disease. 10. Anemia. 11. Cardiac MRI previous showing of infiltrative myocardial process. 12. History of cardiac catheterization at [facility] on 06/19/2017. No significant underlying coronary disease was noted. DISPOSITION: The patient was discharged home. DISCHARGE MEDICATIONS: Refer to med list. Followup: The patient was advised to follow up with his PMD and contact lens cutter. Zhou Flores M.D. I have been assigned to dictate discharge summary on this account and I was not involved in the patient's management. Suad Leon N.P. DR: SANDRO JOB#: [id number] CC: DEMARCO
== END 2017-06-26 16:25 | disposition home or self-care (01) | DRG 309 ==
LOC: EDBD 15:39 → EMR 17:36 → EDBEDREQ 17:47 → 2E 18:04 → EDBEDREQ 18:18 → 2E 19:34
DX: R00.1 Bradycardia, unspecified (principal); N17.9 Acute kidney failure, unspecified; J90 Pleural effusion, not elsewhere classified; I50.32 Chronic diastolic (congestive) heart failure; I27.20 Pulmonary hypertension, unspecified; E87.5 Hyperkalemia; I44.0 Atrioventricular block, first degree; N18.9 Chronic kidney disease, unspecified; K21.9 Gastro-esophageal reflux disease without esophagitis; E78.5 Hyperlipidemia, unspecified; I25.2 Old myocardial infarction; I35.0 Nonrheumatic aortic (valve) stenosis; J44.9 Chronic obstructive pulmonary disease, unspecified; D64.9 Anemia, unspecified; I25.10 Atherosclerotic heart disease of native coronary artery without angina pectoris; I12.9 Hypertensive chronic kidney disease with stage 1 through stage 4 chronic kidney disease, or unspecified chronic kidney disease; Z86.73 Personal history of transient ischemic attack (TIA), and cerebral infarction without residual deficits; Z96.1 Presence of intraocular lens
CPT/HCPCS: 36415; 71010; 80053; 82248; 82378; 82550; 82553; 82962; 83036; 83880; 84443; 84484; 84550; 85007; 85025; 93005; 93306; 94640; 94664; 99285